=== PATIENT | female | born 1965 | race Caucasian/White ===

== ENCOUNTER 2017-02-28 11:57 | Emergency (ER) | payer SELFPAY ==
[2017-02-28 12:13] VITALS: RESP 16; TEMP 96.7
[2017-02-28] MEDS ORDERED: NORMAL SALINE 10 ML SYRINGE FLUSH IVP PRN (12:15)
[2017-02-28] MEDS ORDERED: CLOPIDOGREL BISULFATE 300 MG TABLET PO ONE (12:15)
--- NOTE | 2017-02-28 12:17 | EKG ---
[address] [address] Measurements Intervals [place] Rate: 75 P: 63 NV: 135 QRS: 41 QRSD: 93 T: 49 QT: 365 QTc: 394 Interpretive Statements SINUS RHYTHM No previous ECG available for comparison Electronically Signed On 02-28-17 13:58:58 MDT by Agapito Montague [email or web address]
[2017-02-28 12:31] LABS: BASOPHILS # (AUTO) 0.07 10*3/UL; BASOPHILS % (AUTO) 0.4 % (0-1); EOSINOPHILS # (AUTO) 0.25 10*3/UL; EOSINOPHILS % (AUTO) 1.6 % (0-8); HEMATOCRIT 47.9 % (37.0-47.0); HEMOGLOBIN 16.1 g/dL (12.0-16.0); MEAN CORPUSCULAR HEMOGLOBIN 32.6 PG (27-31); MEAN CORPUSCULAR HGB CONC 33.6 g/dL (33-37); MEAN PLATELET VOLUME 10.7 FL (7.4-12.2); MONOCYTES # (AUTO) 1.35 10*3/UL (0.3-0.8); MONOCYTES % (AUTO) 8.5 % (5-15); NEUTROPHILS # (AUTO) 9.29 10*3/UL; NEUTROPHILS % (AUTO) 58.8 % (50-80); RED BLOOD COUNT 4.94 10^6/uL (4.20-5.40)
[2017-02-28 12:40] LABS: PLATELET MORPHOLOGY COMMENT NORMAL MORPHOLOGY (NORM); RBC MORPHOLOGY COMMENT NORMAL MORPHOLOGY (NORM); WBC MORPHOLOGY COMMENT NORMAL MORPHOLOGY (NORM)
[2017-02-28 12:43] LABS: BLOOD UREA NITROGEN 11 mg/dL (7-22); BUN/CREATININE RATIO 15.71 (6-20); CALCIUM 8.8 mg/dL (8.7-10.7); EST GLOMERULAR FILTRATION > 60 (>60 ml/min/1.73m(2)); SERUM ALBUMIN 3.6 g/dL (3.5-4.8)
--- NOTE | 2017-02-28 12:48 | DI ---
AP CHEST X-RAY, 02/28/2017 12:15 PM : Clinical History: Chest pain Previous Exam: None at this facility. There is no acute soft tissue or bony abnormality. Heart size is normal. Lungs are clear. Mediastinal structures are normal. There are no pulmonary nodules. Reading: Normal chest x-ray.
[2017-02-28 12:55] LABS: TROPONIN I < 0.012 ng/mL (< 0.040)
--- NOTE | 2017-02-28 15:48 | DI ---
CT CTA CHEST NONCORONARY W/WO,02/28/2017 1:44 PM: Clinical History: Chest pain and elevated d-dimer. Previous Exam: None at this facility. Findings: Multiple helically acquired CT images are obtained through the chest following a CT angiogram protoco l. Images are obtained after intravenous administration of 65 cc of Isovue 300. There is no filling defect or truncation of the pulmonary arteries. The aorta is unremarkable. The upper abdomen is also unremarkable. Mild degenerative changes of the spine are seen. Impression: 1. No evidence of pulmonary embolism. 2. No acute intrathoracic pathology.
--- NOTE | 2017-02-28 16:14 | PDOC ---
Chest Pain HPI - General Chief Complaint: Chest Pain Stated Complaint: LEFT AXILLA PAIN/CP Date Seen by Provider: 02/28/17 Time Seen by Provider: 12:05 Source: Patient Exam Limitations: POSITIVE: No limitations Treatment Prior to Arrival: REPORTS: None Nurse's Notes Reviewed & Considered: Yes - History of Present Illness Initial Comments: The patient is a 51-year-old female. She initially presented to the outpatient clinic with a chief complaint of pain in the left upper anterior axillary area. Outpatient clinic referred her to the emergency room for evaluation. The patient states that she lives in [place] and had been driving up to [place] to visit some relatives and friends. She also has been visiting some acquaintances in [place]. 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 She states that her pain is positional and is exacerbated by bending and portion of the torso. She's had no associated dyspnea. She states that she was told at one time that she had a heart murmur. She states she had an electrocardiogram 6 months ago for "a weird feeling in my chest", and she states that it is her understanding that this electrocardiogram was normal. The patient smokes one to one and a half packs of cigarettes daily. She takes atorvastatin. She's had a hysterectomy. The patient's second complaint is that she wants to be checked for STDs. She states that she had unprotected intercourse with a man that she met on an Internet dictating site 2 weeks ago. She's not had any skin lesions and she's not had any vaginal discharge. No fevers. Body Location Affected: REPORTS: Chest Timing: REPORTS: Constant Duration: <24 hours (26-28 hours) Severity: Moderate Persistent/Worse since (date): 02/28/17 Persistent/Worse since (time): 10:00 Context: REPORTS: Activity (Pain is exacerbated by flexion and torsion of the torso and by direct palpation.) Quality: REPORTS: Burning, "Pain", Sharpness, Stabbing Radiation: REPORTS: Other (Down left anterior thorax) Associated Symptoms: DENIES: Nausea, Vomiting, Diaphoresis, Shortness of Breath , Hurts to Breathe, Palpitations, Productive Cough (blood), Productive Cough ( sputum), Weakness, Dizziness Modifying Factors: improves with: Movement, Pressing On Area Recently seen/treated/hospitalized: No Any Prior Injuries Related to Current Complaint?: No - Patient Home Medications Home Medications: Home Medications Atorvastatin Calcium 40 mg PO DAILY 02/28/17 - Patient Allergies Allergies/Adverse Reactions: Allergies Allergy/AdvReac Type Severity Reaction Status Date / Time aspirin Allergy Severe CAN'T WALK Verified 02/28/17 12:00 Past Medical History - heen HEENT History: Denies History Cardiovascular History: Hyperlipidemia Additional Cardiovasular History: MURMUR, HYPERLIPIDEMIA Respiratory History: Denies History Gastrointestinal History: Denies History Genitourinary History: Denies History Endocrine History: Denies History Musculoskeletal History: Denies History Neurological History: Denies History Blood Disorders: Denies History Psychiatric History: Denies History Female Reproductive History: Hysterectomy Obstetrical History: Delivery Cancer History: Denies History In Past Year Been Physically Harmed or Verbally Threatened: No History of MDRO: No Tobacco Use: Heavy Tobacco Smoker Alcohol Use: Rarely Substance Use Type: None Previous Surgical History: Yes Type / Date of Surgery: HYSTERECTOMY 1995, TONSILLECTOMY, X2 ([facility]), ELBOWS B/L, L WRIST Anesthesia Reactions: No Malignant Hyperthermia: No Family History of Malignant Hyperthermia: No Significant Family History: Cancer Past Medical History Reviewed: Reviewed - No Changes ROS - Limitations ROS Limitations: No Limitations Constitution: REPORTS: Denies Symptoms Cardiovascular: REPORTS: Chest Pain Respiratory: REPORTS: Denies Resp Symptoms Neurological: REPORTS: Denies Neuro Symptoms Gastrointestinal: REPORTS: Denies GI Symptoms Endocrine: REPORTS: Denies Symptoms Musculoskeletal: REPORTS: Denies MS Symptoms Genitourinary: REPORTS: Denies Symptoms Eyes: REPORTS: Denies Symptoms ENT: REPORTS: Denies Symptoms Skin: REPORTS: Denies Skin Symptoms Lympathic: REPORTS: Denies Lympathic Symptoms Immunologic: POSITIVE: Denies Symptoms Psychiatric: POSITIVE: Denies Psych Symptoms Chest Pain PE - General Appearance General Appearance: REPORTS: Alert, Cooperative, No Acute Distress, No Evidence of Trauma - HEENT HEENT: POSITIVE: Head Inspection Nml, Eyes Inspection Nml, Ears Inspection Nml, Nose Inspection Nml, Oral/Dental Inspect. Nml, Pharynx Inspect. Nml, PERRL, EOMI - Neck Neck: REPORTS: Normal Inspection, No Carotid Bruit - Respiratory Respiratory: REPORTS: No Respiratory Distress, Breath Sounds Normal, Chest Non- Tender - Cardiovascular Cardiovascular: REPORTS: Regular Rate and Rhythm, Heart Sounds Normal, Equal Pulses, Strong Pulses, No Murmur, No Gallop, No Friction Rub, No JVD, Other ( Left anterior chest wall tender just anterior to left axilla) Peripheral Pulses: Radial (R): 2+, Radial (L): 2+ - Abdomen Abdomen: Soft: (All Quadrants), Normal Bowel Sounds: (All Quadrants), Denies Tenderness: (All Quadrants), No Splenomegaly: (All Quadrants), No Hepatomegaly: (All Quadrants), No Guarding: (All Quadrants), No Rebound: (All Quadrants), No Palpable Pulse: (All Quadrants), No Palpabale Mass: (All Quadrants), No Distention: (All Quadrants), No Rigidity: (All Quadrants) Additional Abdominal Details: Pelvic examination showed no lesions. No discharge. Adnexa nontender. No evidence of STDs. DNA probe for chlamydia and gonorrhea were negative. 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 CTA chest normal. Lab Results Reviewed: Yes Lab Results:: Laboratory Results 02/28/17 Range/Units 12:20 WBC 15.80 H (4.8-10.8) 10^3/uL RBC 4.94 (4.20-5.40) 10^6/uL Hgb 16.1 H (12.0-16.0) g/dL Hct 47.9 H (37.0-47.0) % MCV 97.0 (81-99) FL MCH 32.6 H (27-31) PG MCHC 33.6 (33-37) g/dL RDW Std Deviation 55.6 H (39-50) fL RDW Coeff of Sebastien 15.6 H (11.5-14.5) % Plt Count 262 (140-350) 10*3/uL MPV 10.7 (7.4-12.2) FL Immature Gran % (Auto) 0.3 (0-5) % Neut % (Auto) 58.8 (50-80) % Lymph % (Auto) 30.4 (10-50) % Robertson % (Auto) 8.5 (5-15) % Eos % (Auto) 1.6 (0-8) % Baso % (Auto) 0.4 (0-1) % Immature Gran # (Auto) 0.04 10*3/UL Neut # (Auto) 9.29 10*3/UL Lymph # (Auto) 4.80 10*3/uL Robertson # (Auto) 1.35 H (0.3-0.8) 10*3/UL Eos # (Auto) 0.25 10*3/UL Baso # (Auto) 0.07 10*3/UL WBC Morphology Comment Normal morphology (NORM) Plt Morphology Comment Normal morphology (NORM) RBC Morph Comment Normal morphology (NORM) D-Dimer 0.81 H (0.00-0.59) mg/L Sodium 144 (135-145) meq/L Potassium 4.1 (3.8-5.2) meq/L Chloride 107 (98-112) meq/L Carbon Dioxide 31 (23-33) meq/L Anion Gap 6 (5-20) BUN 11 (7-22) mg/dL Creatinine 0.7 (0.50-1.20) mg/dL Estimated GFR > 60 (>60 ml/min/1.73m(2)) BUN/Creatinine Ratio 15.71 (6-20) Glucose 117 H (78-110) mg/dL Calculated Osmolality 297.0 H (267-292) mOsm/kg Calcium 8.8 (8.7-10.7) mg/dL Total Bilirubin 0.7 (0.3-1.2) mg/dL AST 35 (8-39) IU/L ALT 41 (9-52) IU/L Alkaline Phosphatase 56 (38-126) IU/L CK-MB (CK-2) 1.40 (0.00-5.00) NG/ML Troponin I < 0.012 (< 0.040) ng/mL Total Protein 7.0 (6.1-8.0) g/dL Albumin 3.6 (3.5-4.8) g/dL Globulin 3.3 (2.50-4.10) g/dL Albumin/Globulin Ratio 1.00 L (1.3-2.0) mg/g EKG Interpreted/Reviewed By Me:: Yes EKG Interpretation:: POSITIVE: Normal Sinus Rhythm, Normal Rate, Normal Intervals, Normal [place], Normal QRS, Normal ST/T - Patient's Progress Pain Medication Addressed: POSITIVE: Yes (Recommended Advil or Tylenol) School/Work Release Addressed: POSITIVE: Not Applicable Re-Examine Time: 14:45 Status: POSITIVE: Unchanged, Re-Examined Quality Measure Initiative: CP/AMI: POSITIVE: EKG, ASA (Plavix; patient allergic to aspirin) - Consult Counseled: POSITIVE: Patient, RE: Lab Results, RE: Radiology Results, RE: DX, RE : Need for F/U Patient Care Time - Estimated PCT Patient Care Time (In Minutes): 60 Vital Signs - Recent Vital Signs Vital Signs: Vital Signs (Last 8 hours) Temp Pulse Pulse Pulse Resp BP Pulse Ox 02/28/17 12:05 75 02/28/17 11:57 96.7 F L 71 71 16 110/70 94 - VS Reviewed Vital Signs Reviewed: Yes Discharge Clinical Impression: Atypical chest pain, Chest wall pain Discharge Disposition: Discharged to Home Condition: Fair Patient Instructions Given at Discharge: Noncardiac Chest Pain (ED) Additional Instructions: I believe your chest discomfort is muscular. I see no evidence that it is coming from either your heart or your lungs. Your test for blood clots in the lung and heart attacks were both negative. Please apply warm moist compresses to the area of chest discomfort. Advil or Tylenol for discomfort. Please stop smoking. Your tests for sexually transmitted Chlamydia and gonorrhea were both negative. Follow-up with your primary care provider. Return here as necessary. Follow Up With: NONE,NONE [Primary Care Provider] - (Instructions as above. Follow-up with your primary care provider. Return here as necessary.)
== END 2017-02-28 15:12 | disposition home or self-care (01) ==
LOC: ER 11:57
DX: R07.89 Other chest pain (principal); R79.1 Abnormal coagulation profile; E78.5 Hyperlipidemia, unspecified
CPT/HCPCS: 36000; 71010; 71275; 80053; 82553; 84484; 85025; 85379; 87491; 87591; 93005; 93010; 99284